=== PATIENT | male | born 1955 | race Caucasian/White ===

== ENCOUNTER 2023-07-08 14:18 | Inpatient (IN) | payer OTHER ==
[2023-07-08] MEDS ORDERED: Famotidine/PF 20 mg/2ml Vial ONE (14:40)
[2023-07-08] MEDS ORDERED: diphenhydrAMINE 50 MG/ML VIAL ONE (14:40)
[2023-07-08] MEDS ORDERED: Dexamethasone 10 MG/ML VIAL ONE (14:40)
[2023-07-08] MEDS ORDERED: Tranexamic Acid 1,000 MG/10 ML VIAL ONE (14:40)
[2023-07-08 14:48] LABS: #Monocytes 0.5 thou/uL (0.11-0.59); %Basophils 0.3 % (0.0-1.0); %Eosinophils 0.5 % (0.0-10.0); %Lymphocytes 14.6 % (21.0-51.0); %Monocytes 5.1 % (0.0-10.0); %Neutrophils 79.3 % (42.0-75.0); Hematocrit 45.3 % (42.0-52.0); Mean Corpuscular HGB CONC 35.3 g/dL (32.0-36.0); Mean Corpuscular Hemoglobin 32.5 pg (27.0-31.0); Mean Corpuscular Volume 92.1 fl (78.0-98.0); Mean Platelet Volume 8.7 fL (7.4-10.4); Platelet Count 224 10x3/uL (130-400); RBC Distribution Width 13.3 % (11.5-14.5); Red Blood Cell (RBC) Count 4.92 mill/uL (4.70-6.10); White Blood Cell (WBC) Count 8.8 10x3/uL (4.8-10.8)
[2023-07-08 15:11] LABS: ALT (SGPT) 20 U/L (8-55); AST (SGOT) 21 U/L (5-34); Albumin 4.8 g/dL (3.4-4.8); Alkaline Phosphatase 80 U/L (40-110); Anion Gap 16 mmol/L (10-20); BUN (Urea Nitrogen) 17 mg/dL (8.4-25.7); Bilirubin, Total 0.9 mg/dL (0.2-1.2); CK (CPK) 59 U/L (30-200); Calc. Creatinine Clearance 0 mL/min (70-130); Calcium 9.1 mg/dL (7.8-10.44); Carbon Dioxide 20 mmol/L (23-31); Chloride 103 mmol/L (98-107); Estimated GFR 63; Globulin 2.3 g/dL (2.4-3.5); Glucose 90 mg/dL (80-115); Lipase 20 U/L (8-78); Potassium 4.2 mmol/L (3.5-5.1); Protein, Total 7.1 g/dL (5.8-8.1); Sodium 135 mmol/L (136-145)
[2023-07-08] MEDS ORDERED: Senokot S 8.6-50 MG TAB PO PRN (15:43)
[2023-07-08] MEDS ORDERED: Guaifenesin DM 100-10/5 ML UDCUP PO PRN (15:43)
[2023-07-08] MEDS ORDERED: diphenhydrAMINE 50 MG/ML VIAL IVP SCH (16:00)
[2023-07-08 17:54] VITALS: BMI 29.5
[2023-07-08] MEDS: Sodium Chloride 0.9% 1,000 ML IV SCH (18:16)
[2023-07-08] MEDS: methylPREDNISolone Sod Succ 40 MG VIAL IVP SCH ×2 (18:16→23:32)
[2023-07-08] MEDS: Famotidine/PF 20 mg/2ml Vial SLOW IVP SCH (20:17)
[2023-07-08] MEDS: Acetaminophen 650 MG/20.3 ML UDCUP PO PRN (22:09)
[2023-07-09 03:58] LABS: #Neutrophils 6.5 thou/uL (1.40-6.50); %Lymphocytes 5.5 % (21.0-51.0); %Monocytes 0.6 % (0.0-10.0); %Neutrophils 93.6 % (42.0-75.0); Hematocrit 42.5 % (42.0-52.0); Hemoglobin 14.8 g/dL (14.0-18.0); Mean Corpuscular HGB CONC 34.8 g/dL (32.0-36.0); Mean Corpuscular Hemoglobin 32.2 pg (27.0-31.0); Mean Corpuscular Volume 92.4 fl (78.0-98.0); Mean Platelet Volume 8.9 fL (7.4-10.4); Platelet Count 212 10x3/uL (130-400); RBC Distribution Width 13.2 % (11.5-14.5)
[2023-07-09] MEDS: Acetaminophen 650 MG/20.3 ML UDCUP PO PRN (04:06)
[2023-07-09 04:22] LABS: Anion Gap 15 mmol/L (10-20); BUN (Urea Nitrogen) 17 mg/dL (8.4-25.7); Calc. Creatinine Clearance 69 mL/min (70-130); Calcium 8.6 mg/dL (7.8-10.44); Carbon Dioxide 22 mmol/L (23-31); Chloride 105 mmol/L (98-107); Estimated GFR 56; Glucose 159 mg/dL (80-115); Potassium 4.7 mmol/L (3.5-5.1); Sodium 137 mmol/L (136-145)
[2023-07-09] MEDS: methylPREDNISolone Sod Succ 40 MG VIAL IVP SCH (05:59)
[2023-07-09] MEDS: Sodium Chloride 0.9% 1,000 ML IV SCH (07:18)
[2023-07-09] MEDS: Famotidine/PF 20 mg/2ml Vial SLOW IVP SCH (08:31)
[2023-07-09 09:09] VITALS: TEMP 98.1
== END 2023-07-09 10:55 | disposition home or self-care (01) | DRG 916 ==
LOC: ERS 14:18 → CCU 15:50
PROVIDERS: ADMIT Hospitalist; ATTEND Internal Medicine
DX: T78.3XXA Angioneurotic edema, initial encounter (principal); E87.1 Hypo-osmolality and hyponatremia; I10 Essential (primary) hypertension; N40.0 Benign prostatic hyperplasia without lower urinary tract symptoms; E78.5 Hyperlipidemia, unspecified; K13.0 Diseases of lips; T46.4X5A Adverse effect of angiotensin-converting-enzyme inhibitors, initial encounter; Z96.652 Presence of left artificial knee joint; Z98.890 Other specified postprocedural states; Z79.899 Other long term (current) drug therapy; Z88.8 Allergy status to other drugs, medicaments and biological substances; Z87.891 Personal history of nicotine dependence
CPT/HCPCS: 36415; 80048; 80053; 82550; 83690; 85025; 86850; 86900; 86901; 93005; J1100; J1200; J2920; J7050; S0028